=== PATIENT | male | born 1965 | race Caucasian/White ===

== ENCOUNTER 2016-07-03 10:25 | Inpatient (IN) | payer SELFPAY ==
[~2016-07-03] VITALS: Ht 185.4 cm; Wt 107.0 kg
[2016-07-03] VITALS (8 sets, daily range): BP systolic 116–175; BP diastolic 51–109; PULSE 86–120; RESP 15–28; TEMP 99–101.6; O2SAT 98–100
[2016-07-03] MEDS ORDERED: SODIUM CHLOR 0.9% 1000 ML INJ 1,000 ML IV SCH ×2 (11:15→12:29)
--- NOTE | 2016-07-03 11:17 | PD ---
HPI Chief Complaint: GI Complaint Time Seen by Provider: 11:17 Travel History International Travel<30 days: No Contact w/Intl Traveler<30days: No Traveled to known affect area: No History of Present Illness HPI 51-year-old male presents to the emergency department for evaluation of diarrhea for 3 weeks. Patient states that he has had copious loose stools for the past 3 weeks with loss of appetite. States that over the past several days he has had weakness and fatigue. States that today he had an episode of lightheadedness when standing up quickly. States that he has noticed some mucus in his stool and has had some blood-tinged stool but reports he thinks he has a hemorrhoid. Denies any black or tarry stools, nausea, vomiting, abdominal pain, chest pain, shortness of breath, cough or cold symptoms. Denies any recent travel or sick contacts. States that several weeks ago before his symptoms started he recalls eating grapes at the [employer] before washing them and thinks that that may have been what started his symptoms. Prior abdominal surgeries include cholecystectomy and inguinal hernia repair. No other complaints. PFSH Past Medical History Hx Anticoagulant Therapy: No Cancer: No Cardiovascular Problems: No Chemotherapy: No Cerebrovascular Accident: No Diabetes: No Diminished Hearing: No Endocrine: No Gastrointestinal Disorders: Yes Genitourinary: No Hepatitis: No Hiatal Hernia: No Immune Disorder: No Inguinal Hernia: Yes Musculoskeletal: Yes Neurologic: No Psychiatric: No Respiratory: No Tetanus Vaccination: > 5 Years Influenza Vaccination: No Past Surgical History Abdominal Surgery: Yes (HERNIA) Body Medical Devices: NONE Cardiac Surgery: No Cholecystectomy: Yes (2004 REMOVED) Ear Surgery: No Endocrine Surgery: No Eye Surgery: No Genitourinary Surgery: No Oral Surgery: No Thoracic Surgery: No Social History Alcohol Use: Yes (OCCASIONAL) Tobacco Use: No Substance Use: No Allergies-Medications (Allergen,Severity, Reaction): Coded Allergies: Penicillin (Verified Allergy, Severe, Rash, 07/03/16) Ampicillin (Verified Allergy, Unknown, 07/03/16) WAS A CHILD --DOESNT KNOW Erythromycin (Verified Allergy, Unknown, 07/03/16) *MDRO Multi-Drug Resistant Organism (Unverified Adverse Reaction, Unknown , 07/03/16) MRSA Reported Meds & Prescriptions Reported Meds & Active Scripts Active No Active Prescriptions or Reported Medications Review of Systems Except as stated in HPI: all other systems reviewed are Neg Physical Exam Narrative GENERAL: Well-nourished and well-developed pleasant male patient in no acute distress who is nontoxic appearing. SKIN: Warm and dry. HEAD: Normocephalic and atraumatic. EYES: No injection, drainage, or hyphema noted. PERRLA. EOMI. ENT: No nasal drainage noted. Oropharynx is clear. NECK: Supple and the trachea is midline. CARDIOVASCULAR: Regular rate and rhythm. RESPIRATORY: Breath sounds are equal bilaterally with no accessory muscle use, wheezing, rhonchi, or crackles. GASTROINTESTINAL: Mild tenderness to palpation of left lower quadrant. No rebound tenderness or guarding. Negative Justin sign. Negative McBurney's point. Abdomen is soft and nondistended. MUSCULOSKELETAL: No obvious deformities, swelling, cyanosis, or ecchymosis is present throughout the upper and lower extremities. Patient has full range of motion without any signs of neurovascular compromise. NEUROLOGICAL: Awake, alert, and oriented. Normal speech and gait. Cranial nerves are grossly intact. Data Data Last Documented VS Vital Signs Date Time Temp Pulse Resp B/P Pulse Ox O2 Delivery O2 Flow Rate FiO2 07/03/16 14:00 95 15 123/51 100 Room Air 07/03/16 10:29 100.6 Orders Complete Blood Count With Diff (07/03/16 11:15) Comprehensive Metabolic Panel (07/03/16 11:15) Lipase (07/03/16 11:15) Lactic Acid (07/03/16 11:15) Prothrombin Time / Inr (Pt) (07/03/16 11:15) Act Partial Throm Time (Ptt) (07/03/16 11:15) Urinalysis - C+S If Indicated (07/03/16 11:15) Ct Abd/Pel W Iv Contrast(Rout) (07/03/16 11:15) Iv Access Insert/Monitor (07/03/16 11:15) Ecg Monitoring (07/03/16 11:15) Oximetry (07/03/16 11:15) Sodium Chlor 0.9% 1000 Ml Inj (Ns 1000 M (07/03/16 11:15) Sodium Chloride 0.9% Flush (Ns Flush) (07/03/16 11:15) Blood Culture (07/03/16 11:17) Acetaminophen (Tylenol) (07/03/16 11:30) Sodium Chlor 0.9% 1000 Ml Inj (Ns 1000 M (07/03/16 12:29) Iohexol 350 Inj (Omnipaque 350 Inj) (07/03/16 12:54) C Diff Toxin Pcr (07/03/16 13:23) Stool Afb Culture And Stain (07/03/16 13:23) Levofloxacin 500 Mg Premix Inj (Levaquin (07/03/16 13:30) Metronidazole 500 Mg Inj (Flagyl 500 Mg (07/03/16 13:30) Admit Order (Ed Use Only) (07/03/16 14:44) Labs Laboratory Tests Test 07/03/16 07/03/16 07/03/16 11:15 11:20 13:45 White Blood Count 4.9 TH/MM3 Red Blood Count 4.62 MIL/MM3 Hemoglobin 13.8 GM/DL Hematocrit 38.6 % Mean Corpuscular Volume 83.4 FL Mean Corpuscular Hemoglobin 29.8 PG Mean Corpuscular Hemoglobin 35.8 % Concent Red Cell Distribution Width 12.7 % Platelet Count 321 TH/MM3 Mean Platelet Volume 6.9 FL Neutrophils (%) (Auto) 95.0 % Lymphocytes (%) (Auto) 4.0 % Monocytes (%) (Auto) 0.7 % Eosinophils (%) (Auto) 0.2 % Basophils (%) (Auto) 0.1 % Neutrophils # (Auto) 4.7 TH/MM3 Lymphocytes # (Auto) 0.2 TH/MM3 Monocytes # (Auto) 0.0 TH/MM3 Eosinophils # (Auto) 0.0 TH/MM3 Basophils # (Auto) 0.0 TH/MM3 CBC Comment DIFF FINAL Differential Comment Prothrombin Time 12.2 SEC Prothromb Time International 1.1 RATIO Ratio Activated Partial 26.1 SEC Thromboplast Time Sodium Level 139 MEQ/L Potassium Level 3.6 MEQ/L Chloride Level 105 MEQ/L Carbon Dioxide Level 24.6 MEQ/L Anion Gap 9 MEQ/L Blood Urea Nitrogen 9 MG/DL Creatinine 1.24 MG/DL Estimat Glomerular Filtration 61 ML/MIN Rate Random Glucose 105 MG/DL Calcium Level 8.4 MG/DL Total Bilirubin 0.5 MG/DL Aspartate Amino Transf 23 U/L (AST/SGOT) Alanine Aminotransferase 29 U/L (ALT/SGPT) Alkaline Phosphatase 70 U/L Total Protein 6.7 GM/DL Albumin 3.0 GM/DL Lipase 57 U/L Lactic Acid Level 3.0 mmol/L Urine Color YELLOW Urine Turbidity CLEAR Urine pH 6.0 Urine Specific [place] 1.043 Urine Protein TRACE mg/dL Urine Glucose (UA) NEG mg/dL Urine Ketones TRACE mg/dL Urine Occult Blood TRACE Urine Nitrite NEG Urine Bilirubin NEG Urine Urobilinogen LESS THAN 2.0 MG/DL Urine Leukocyte Esterase NEG Urine RBC 1 /hpf Urine WBC LESS THAN 1 /hpf Urine Squamous Epithelial <1 /hpf Cells Urine Mucus FEW /lpf Microscopic Urinalysis Comment CULT NOT INDICATED MDM Medical Decision Making Medical Screen Exam Complete: Yes Emergency Medical Condition: Yes Differential Diagnosis Diverticulitis versus colitis versus dehydration versus electrolyte abnormality versus other Narrative Course 51-year-old male presents to the emergency department for evaluation of diarrhea and loss of appetite for the past 3 weeks. Patient has a fever of 100.6F and he is tachycardic with a heart rate of 120 beats per minute. He is slightly hypertensive with a blood pressure 175/109 initially. Patient admits to feeling quite anxious. He does have some left lower quadrant abdominal tenderness to palpation but no peritoneal signs. IV access is obtained, labs have been drawn and sent. Patient is placed on cardiac telemetry and pulse oximetry monitoring. Patient is administered IV fluids. CT scan of the abdomen and pelvis has been ordered and is pending. CBC is unremarkable. CMP is unremarkable. Lactic acid is elevated at 3.0. Coags are unremarkable. CT of the abdomen and pelvis with IV contrast shows abnormal appearance of the cecum and ascending colon with focal wall thickening seen within the descending colon and perinephric fat stranding seen adjacent to the cecum consistent with colitis. Also multiple well circumscribed low density lesions within the liver consistent with simple hepatic cysts. The patient has been given 3 L of IV fluids and his heart rate has come down to around 95 bpm. He is administered IV Levaquin and IV Flagyl. The patient will be admitted for colitis and sepsis for IV fluids and antibiotics. I discussed the case with my attending physician Dr. Neff who is aware of the patients history, physical examination findings, and treatment plan. Sepsis Criteria Sepsis Criteria (SIRS+source): Infect source susp/known Physician Communication Physician Communication I spoke with Dr. Soni [facility] who agrees to admit the patient to his service. Diagnosis Primary Impression: Sepsis Qualified Code: A41.9 - Sepsis, due to unspecified organism Additional Impression: Colitis Admitting Information Admitting Physician Requests: Admit Scripts No Active Prescriptions or Reported Meds Maame Mejia Jul 03, 2016 11:17
[2016-07-03] MEDS: SODIUM CHLORIDE 0.9% FLUSH 10 ML FLUSH IV FLUSH PRN ×2 (11:19→21:15)
[2016-07-03] MEDS ORDERED: ACETAMINOPHEN 500 MG CPLT PO ONE (11:30)
[2016-07-03 11:41] LABS: AUTOMATED NEUTROPHIL # 4.7 TH/MM3 (1.8-7.7); BASOPHIL % 0.1 % (0.0-2.0); EOSINOPHIL % 0.2 % (0.0-4.0); HEMATOCRIT 38.6 % (39.0-51.0); HEMO FLAGS DIFF FINAL; LYMPHOCYTE # 0.2 TH/MM3 (1.0-4.8); MEAN CELL VOLUME 83.4 FL (80.0-100.0); MEAN CORPUSCULAR HEMOGLOBIN 29.8 PG (27.0-34.0); MEAN CORPUSCULAR HGB CONC 35.8 % (32.0-36.0); MONO % 0.7 % (0.0-8.0); PLATELET COUNT 321 TH/MM3 (150-450); RED BLOOD COUNT 4.62 MIL/MM3 (4.50-5.90); RED CELL DISTRIBUTION WIDTH 12.7 % (11.6-17.2); WHITE BLOOD COUNT 4.9 TH/MM3 (4.0-11.0)
[2016-07-03 11:44] LABS: APTT (PATIENT) 26.1 SEC (24.3-30.1); INTERNATIONAL NORMALIZED RATIO 1.1 RATIO; PROTHROMBIN TIME - PATIENT 12.2 SEC (9.8-11.6)
[2016-07-03 11:57] LABS: ALT (GPT) 29 U/L (12-78); ANION GAP 9 MEQ/L (5-15); AST (GOT) 23 U/L (15-37); BICARBONATE 24.6 MEQ/L (21.0-32.0); BLOOD UREA NITROGEN 9 MG/DL (7-18); CHLORIDE 105 MEQ/L (98-107); GLOMERULAR FILTRATION RATE 61 ML/MIN (>89); POTASSIUM 3.6 MEQ/L (3.5-5.1); SODIUM (NA) 139 MEQ/L (136-145)
[2016-07-03 11:59] LABS: ALKALINE PHOSPHATASE 70 U/L (45-117); TOTAL BILIRUBIN ADULT 0.5 MG/DL (0.2-1.0)
[2016-07-03] MEDS ORDERED: IOHEXOL 350 MG/ML 10 ML VIAL (for RAD DIAG) IV ONE (12:54)
--- NOTE | 2016-07-03 13:10 | RADRPT ---
EXAM DATE/TIME: 07/03/2016 12:28 [facility] COMPARISON: No previous studies available for comparison. INDICATIONS : Generalized weakness. IV CONTRAST: 100 cc Omnipaque 350 (iohexol) IV ORAL CONTRAST: No oral contrast ingested. RADIATION DOSE: 10.24 CTDIvol (mGy) MEDICAL HISTORY : Hernia, inguinal. SURGICAL HISTORY : Cholecystectomy. ENCOUNTER: Initial ACUITY: 1 day PAIN SCALE: 0/10 LOCATION: Bilateral abdomen. TECHNIQUE: Volumetric scanning of the abdomen and pelvis was performed. Using automated exposure control and ad justment of the mA and/or kV according to patient size, radiation dose was kept as low as reasonably achievable to obtain optimal diagnostic quality images. FINDINGS: LOWER LUNGS: The visualized lower lungs are clear. LIVER: The liver demonstrates multiple well-circumscribed fluid attenuating lesions identified within the le ft lobe and to a lesser extent the right lobe consistent with hepatic cysts. There is a single ill-de fined indeterminate low-attenuation lesion identified within the inferior right hepatic lobe on serie s 2 image 30 and coronal series 601 image 80. This area measures approximately 1.3 cm in size. The pa tient is status post prior cholecystectomy. No evidence of biliary obstruction. SPLEEN: Normal size without lesion. PANCREAS: Within normal limits. KIDNEYS: Normal in size and shape. There is no concerning mass, stone or hydronephrosis. There is a single sm all cortical based low density lesion in following the upper pole of the right kidney likely represen ting a small cyst. ADRENAL GLANDS: Within normal limits. VASCULAR: There is no aortic aneurysm. BOWEL/MESENTERY: The stomach and small bowel are unremarkable. There is a segment of descending colon wall thickening measuring approximately 5 cm in length and more distal to this although the wall appears thin there i s suggestion of adjacent perimesenteric fat stranding. These findings are concerning for an area of c olitis. Correlation with the patient's white count. In the absence of leukocytosis consider further e valuation of this region with colonoscopy. The remainder of the colon is unremarkable. ABDOMINAL WALL: Within normal limits. RETROPERITONEUM: There is no lymphadenopathy. BLADDER: No wall thickening or mass. REPRODUCTIVE: Within normal limits. INGUINAL: There is no lymphadenopathy or hernia. MUSCULOSKELETAL: Within normal limits for patient age. CONCLUSION: 1. Abnormal appearance of the cecum and ascending colon with focal wall thickening seen within the de scending colon and perinephric fat stranding seen adjacent to the cecum. Recommend correlation with t he patient's white count and in the absence of elevated white count consider further evaluation of th is region with colonoscopy. 2. Multiple well-circumscribed low-density lesions within the liver consistent with simple hepatic cy sts. There is a single lesion identified within the most inferior portion of the right lobe of the li edmar which is less well-defined and is indeterminate on this exam. Differential diagnosis includes hem angioma, infection and less likely metastatic disease.. Sangeetha Gamboa MD on July 03, 2016 at 12:59 Board Certified Radiologist. This report was verified electronically.
[2016-07-03] MEDS ORDERED: LEVOFLOXACIN 500 MG PREMIX INJ 100 ML IV ONE (13:30)
[2016-07-03] MEDS ORDERED: metroNIDAZOLE 500 MG INJ 100 ML IV ONE (13:30)
[2016-07-03 14:36] LABS: BLOOD, URINE TRACE (NEG); COMMENT (UR) CULT NOT INDICATED; CULTURE IF INDICATED CULT NOT INDICATED; GLUCOSE,URINE NEG (NEG); KETONE, URINE TRACE mg/dL (NEG); MUCUS URINE FEW /lpf (OCC); NITRITE,URINE NEG (NEG); SQUAMOUS EPITHELIAL CELL URINE <1 /hpf (0-5); URINE COLOR YELLOW (YELLW/STRAW)
[2016-07-03] MEDS ORDERED: ONDANSETRON HCL 4 MG/2 ML VIAL IV PRN (16:00)
--- NOTE | 2016-07-03 16:08 | HHI.HP ---
[facility] No Primary Care Physician Admission Diagnosis Sepsis, Colitis Diagnoses: Chief Complaint: Diarrhea Travel History International Travel<30 Days: No Contact w/Intl Traveler <30 Da: No Traveled to Known Affected Are: No Sepsis Criteria SIRS Criteria (2 or more): Temp > 100.9 or < 96.8, Heart rate over 90 Sepsis Criteria (SIRS+source): Infect source susp/known Severe Sepsis (+one): Lactate >2 Criteria Outcome: Meets severe sepsis criteria History of Present Illness This is a 51-year-old male without significant past medical history who presents combining of 3 weeks of diarrhea associated with bloating and episodic abdominal pain. The patient states that he started having watery diarrhea, at times with mucus and in one episode with streaks of blood. He said that he was able to manage the diarrhea. The patient states that last week he started losing his appetite and eating less. This a.m. he woke up feeling lightheaded, dizzy and started having shaking chills. Patient states he also felt warm but did not take his temperature. The patient states he has been having multiple episodes of diarrhea. The patient denies any chest pain, short of breath, denies abdominal pain at this moment, denies weight loss, states he feels very weak. The patient was in emergency department and once given IV antibiotics and IV fluids after which the patient states that he feels better. The patient denies nausea vomiting. The patient states that one day prior to the start of the diarrhea, he went to the [employer] and some grapes which he ate despite the fact that final that there were not washed. Patient denies any recent travel, there are no family sick contacts. Review of Systems As per history of present illness, other systems reviewed by me and negative Past Family Social History Past Medical History Denies Past Surgical History Cholecystectomy, hernia repair. Reported Medications Reported Meds & Active Scripts Active No Active Prescriptions or Reported Medications Allergies: Coded Allergies: Penicillin (Verified Allergy, Severe, Rash, 07/03/16) Ampicillin (Verified Allergy, Unknown, 07/03/16) WAS A CHILD --DOESNT KNOW Erythromycin (Verified Allergy, Unknown, 07/03/16) *MDRO Multi-Drug Resistant Organism (Unverified Adverse Reaction, Unknown , 07/03/16) MRSA Active Ordered Medications Current Medications Medications (Trade) Dose Ordered Sig/Darius Route Start Time Stop Time Status Last Admin (NS Flush) 2 ml UNSCH PRN IV FLUSH 07/03/16 11:15 07/03/16 11:19 Family History Father had diabetes and of pancreatic cancer. Hypertension runs in his family Social History Denies smoking. Occasional alcohol. Denies any drug use. Physical Exam Vital Signs Vital Signs Date Time Temp Pulse Resp B/P Pulse Ox O2 Delivery O2 Flow Rate FiO2 07/03/16 14:00 95 15 123/51 100 Room Air 07/03/16 12:45 89 16 99 Room Air 07/03/16 12:00 103 18 98 Room Air 07/03/16 11:19 16 98 Room Air 07/03/16 11:00 100 16 128/66 100 Room Air 07/03/16 10:45 16 07/03/16 10:29 100.6 120 28 175/109 98 Room Air Physical Exam GENERAL: This is a well-nourished, well-developed patient, in no apparent distress. SKIN: No rashes, ecchymoses or lesions. Cool and dry. HEAD: Atraumatic. Normocephalic. No temporal or scalp tenderness. EYES: Pupils equal round and reactive. Extraocular motions intact. No scleral icterus. No injection or drainage. ENT: Nose without bleeding, purulent drainage or septal hematoma. Throat without erythema, tonsillar hypertrophy or exudate. Uvula midline. Airway patent. NECK: Trachea midline. No JVD or lymphadenopathy. Supple, nontender, no meningeal signs. CARDIOVASCULAR: Regular rate and rhythm without murmurs, gallops, or rubs. RESPIRATORY: Clear to auscultation. Breath sounds equal bilaterally. No wheezes , rales, or rhonchi. GASTROINTESTINAL: Abdomen soft, non-tender, nondistended. No hepato-splenomegaly , or palpable masses. No guarding. MUSCULOSKELETAL: Extremities without clubbing, cyanosis, or edema. No joint tenderness, effusion, or edema noted. No calf tenderness. Negative Homans sign bilaterally. NEUROLOGICAL: Awake and alert. Cranial nerves II through XII intact. Motor and sensory grossly within normal limits. Five out of 5 muscle strength in all muscle groups. Normal speech. Laboratory Laboratory Tests Test 07/03/16 07/03/16 07/03/16 11:15 11:20 13:45 White Blood Count 4.9 Red Blood Count 4.62 Hemoglobin 13.8 Hematocrit 38.6 Mean Corpuscular Volume 83.4 Mean Corpuscular Hemoglobin 29.8 Mean Corpuscular Hemoglobin 35.8 Concent Red Cell Distribution Width 12.7 Platelet Count 321 Mean Platelet Volume 6.9 Neutrophils (%) (Auto) 95.0 Lymphocytes (%) (Auto) 4.0 Monocytes (%) (Auto) 0.7 Eosinophils (%) (Auto) 0.2 Basophils (%) (Auto) 0.1 Neutrophils # (Auto) 4.7 Lymphocytes # (Auto) 0.2 Monocytes # (Auto) 0.0 Eosinophils # (Auto) 0.0 Basophils # (Auto) 0.0 CBC Comment DIFF FINAL Differential Comment Prothrombin Time 12.2 Prothromb Time International 1.1 Ratio Activated Partial 26.1 Thromboplast Time Sodium Level 139 Potassium Level 3.6 Chloride Level 105 Carbon Dioxide Level 24.6 Anion Gap 9 Blood Urea Nitrogen 9 Creatinine 1.24 Estimat Glomerular Filtration 61 Rate Random Glucose 105 Calcium Level 8.4 Total Bilirubin 0.5 Aspartate Amino Transf 23 (AST/SGOT) Alanine Aminotransferase 29 (ALT/SGPT) Alkaline Phosphatase 70 Total Protein 6.7 Albumin 3.0 Lipase 57 Lactic Acid Level 3.0 Urine Color YELLOW Urine Turbidity CLEAR Urine pH 6.0 Urine Specific [place] 1.043 Urine Protein TRACE Urine Glucose (UA) NEG Urine Ketones TRACE Urine Occult Blood TRACE Urine Nitrite NEG Urine Bilirubin NEG Urine Urobilinogen LESS THAN 2.0 Urine Leukocyte Esterase NEG Urine RBC 1 Urine WBC LESS THAN 1 Urine Squamous Epithelial <1 Cells Urine Mucus FEW Microscopic Urinalysis Comment CULT NOT INDICATED Date/Time Procedure Status Source Growth 07/03/16 11:20 Aerobic Blood Culture Received Blood Peripheral Pending 07/03/16 11:20 Anaerobic Blood Culture Received Blood Peripheral Pending Result Diagram: 07/03/16 1115 07/03/16 1115 Imaging Last Impressions Abdomen/Pelvis CT 07/03/16 1115 Signed Impressions: Service Date/Time: Sunday, July 03, 2016 12:28 - CONCLUSION: 1. Abnormal appearance of the cecum and ascending colon with focal wall thickening seen within the descending colon and perinephric fat stranding seen adjacent to the cecum. Recommend correlation with the patient's white count and in the absence of elevated white count consider further evaluation of this region with colonoscopy. 2. Multiple well-circumscribed low-density lesions within the liver consistent with simple hepatic cysts. There is a single lesion identified within the most inferior portion of the right lobe of the liver which is less well-defined and is indeterminate on this exam. Differential diagnosis includes hemangioma, infection and less likely metastatic disease.. Sangeetha Gamboa MD Reviewed by me. Septic Shock Reassessment Heart: Regular rate and rhythm Lungs: Clear Skin: Warm Peripheral Pulses: Bounding Right Radial Bounding Left Radial Bounding Right Dorsalis Pedis Bounding Left Dorsalis Pedis Capillary Refill: <2 seconds Assessment and Plan Problem List: (1) Sepsis ICD Code: A41.9 Status: Acute (2) Gastroenteritis ICD Code: K52.9 Status: Acute (3) Colitis ICD Code: K52.9 Status: Acute (4) Generalized weakness ICD Code: R53.1 Status: Acute Assessment and Plan The patient presents with symptoms of gastroenteritis and colitis as shown on CT abdomen and pelvis. Differential diagnosis includes inflammatory versus infectious Admit the patient to the medical floor. Patient meets severe sepsis criteria present admission with tachycardia and low- grade fever and lactate of 3. Continue IV fluids in the form of normal saline. Continue IV antibioticsIV Levaquin and IV Flagyl. Consult gastroenterology for possible colonoscopy once diarrhea resolved. We'll check stool leukocytes, 2 for C. difficile, enteric path testing of the stool, stool Giardia antigen Generalized weakness secondary to diarrhea and decreased oral intake secondary to poor appetite. Code Status Full code Discussed Condition With Patient, ED physician, RN. Physician Certification 2 Midnight Certification Type: Admission for Inpatient Services Order for Inpatient Services The services are ordered in accordance with Medicare regulations or non- Medicare payer requirements, as applicable. In the case of services not specified as inpatient-only, they are appropriately provided as inpatient services in accordance with the 2-midnight benchmark. Estimated LOS (days): 2 days is the estimated time the patient will need to remain in the hospital, assuming treatment plan goals are met and no additional complications. Post-Hospital Plan: Not yet determined Problem Qualifiers (1) Sepsis: Qualified Code: A41.9 - Sepsis, due to unspecified organism Raymond Arias MD Jul 03, 2016 16:08
[2016-07-03] MEDS: NS + KCL 20 MEQ INJ 1,000 ML IV SCH (16:19)
[2016-07-03] MEDS: ENOXAPARIN SODIUM 40 MG/0.4 ML SYRINGE SQ SCH (17:26)
[2016-07-03] MEDS: LACTOBACILLUS ACIDOPHILUS TAB PO SCH ×2 (17:26→21:14)
--- NOTE | 2016-07-03 17:28 | RADRPT ---
EXAM DATE/TIME: 07/03/2016 16:35 [facility] COMPARISON: No previous studies available for comparison. INDICATIONS : Diarrhea abdominal pain MEDICAL HISTORY : Hernia, inguinal SURGICAL HISTORY : Cholecystectomy. ENCOUNTER: Initial ACUITY: 1 day PAIN SCORE: 0/10 LOCATION: Bilateral abdomen FINDINGS: Supine and upright views of the abdomen were performed. The abdominal bowel gas pattern is nonspecif ic with some air-filled nondilated loops of small and large bowel.. No air fluid levels are seen. N o abnormal masses, calcifications, or organomegaly is seen. The visualized lower lungs are clear. N o evidence of free intraperitoneal gas. Surgical clips in the right upper quadrant. There is contrast in the collecting systems. The bony structures are grossly intact. CONCLUSION: Benign abdomen. Everett Rivera MD on July 03, 2016 at 17:25 Board Certified Radiologist. This report was verified electronically.
[2016-07-03] MEDS: ACETAMINOPHEN 325 MG TAB PO PRN (21:14)
[2016-07-04] VITALS: BP 124/65; PULSE 81; RESP 20; TEMP 99.5; O2SAT 99
[2016-07-04] MEDS: NS + KCL 20 MEQ INJ 1,000 ML IV SCH ×3 (00:49→15:28)
[2016-07-04 04:00] VITALS: TEMP 101.5
[2016-07-04] MEDS: LACTOBACILLUS ACIDOPHILUS TAB PO SCH ×3 (04:33→20:48)
[2016-07-04] MEDS: ACETAMINOPHEN 325 MG TAB PO PRN ×2 (04:33→20:49)
[2016-07-04 04:52] LABS: AUTOMATED NEUTROPHIL # 3.7 TH/MM3 (1.8-7.7); BASOPHIL % 0.2 % (0.0-2.0); EOSINOPHIL % 0.2 % (0.0-4.0); HEMATOCRIT 35.1 % (39.0-51.0); HEMO FLAGS DIFF FINAL; LYMPH % 14.3 % (9.0-44.0); LYMPHOCYTE # 0.7 TH/MM3 (1.0-4.8); MEAN CELL VOLUME 84.9 FL (80.0-100.0); MEAN CORPUSCULAR HGB CONC 34.2 % (32.0-36.0); MONO % 11.5 % (0.0-8.0); NEUT % 73.8 % (16.0-70.0); PLATELET COUNT 217 TH/MM3 (150-450); RED BLOOD COUNT 4.14 MIL/MM3 (4.50-5.90); RED CELL DISTRIBUTION WIDTH 12.9 % (11.6-17.2)
[2016-07-04 05:14] LABS: BICARBONATE 26.9 MEQ/L (21.0-32.0); POTASSIUM 3.8 MEQ/L (3.5-5.1)
[2016-07-04 07:54] LABS: C. DIFF TOXIN PCR POSITIVE (NEGATIVE)
[2016-07-04 08:00] VITALS: BP 118/58; PULSE 70; RESP 18; TEMP 97.3; O2SAT 98
[2016-07-04 08:01] LABS: C. DIFF EPI 027 PRESUMPTIVE POSITIVE (NEGATIVE)
[2016-07-04] MEDS ORDERED: metroNIDAZOLE 500 MG INJ 100 ML IV SCH (08:45)
[2016-07-04] MEDS: VANCOMYCIN 500 MG VIAL (FOR ORAL USE ONLY) PO SCH ×4 (09:50→20:48)
[2016-07-04] MEDS: metroNIDAZOLE 500 MG INJ 100 ML IV SCH ×2 (09:51→17:12)
[2016-07-04 12:00] VITALS: BP 122/65; PULSE 74; RESP 16; TEMP 99.5; O2SAT 97
[2016-07-04] MEDS ORDERED: LEVOFLOXACIN 750 MG PREMIX INJ 150 ML IV SCH (14:00)
--- NOTE | 2016-07-04 15:17 | HHI.PR ---
Subjective Remarks Diarrhea much improved denies abdominal pain denies chills had a fever with a Tmax 101.6 last night and this morning. C. difficile positive Objective Vitals Vital Signs Date Time Temp Pulse Resp B/P Pulse Ox O2 Delivery O2 Flow Rate FiO2 07/04/16 12:00 99.5 74 16 122/65 97 07/04/16 08:00 97.3 70 18 118/58 98 07/04/16 04:00 101.5 07/04/16 00:00 99.5 81 20 124/65 99 07/03/16 20:00 101.6 88 20 135/64 100 07/03/16 16:00 99.0 86 16 116/59 98 Room Air I/O 07/03/16 07/03/16 07/03/16 07/04/16 07/04/16 07/04/16 07:00 15:00 23:00 07:00 15:00 23:00 Intake Total 740 ml 1897 ml 1200 ml Output Total 300 ml Balance 740 ml 1597 ml 1200 ml Intake Oral 240 ml 960 ml 1200 ml IV Total 500 ml 937 ml Output Urine Total 300 ml # Voids 3 5 # Bowel Movements 6 5 5 Result Diagram: 07/04/16 0358 07/04/16 0358 Imaging Last Impressions Abdomen/Pelvis CT 07/03/16 1115 Signed Impressions: Service Date/Time: Sunday, July 03, 2016 12:28 - CONCLUSION: 1. Abnormal appearance of the cecum and ascending colon with focal wall thickening seen within the descending colon and perinephric fat stranding seen adjacent to the cecum. Recommend correlation with the patient's white count and in the absence of elevated white count consider further evaluation of this region with colonoscopy. 2. Multiple well-circumscribed low-density lesions within the liver consistent with simple hepatic cysts. There is a single lesion identified within the most inferior portion of the right lobe of the liver which is less well-defined and is indeterminate on this exam. Differential diagnosis includes hemangioma, infection and less likely metastatic disease.. Sangeetha Gamboa MD Abdomen X-Ray 07/03/16 0000 Signed Impressions: Service Date/Time: Sunday, July 03, 2016 16:35 - CONCLUSION: Benign abdomen. Everett Rivera MD Objective Remarks GENERAL: This is a well-nourished, well-developed patient, in no apparent distress. SKIN: No rashes, ecchymoses or lesions. Cool and dry. HEAD: Atraumatic. Normocephalic. No temporal or scalp tenderness. EYES: Pupils equal round and reactive. Extraocular motions intact. No scleral icterus. No injection or drainage. ENT: Nose without bleeding, purulent drainage or septal hematoma. Throat without erythema, tonsillar hypertrophy or exudate. Uvula midline. Airway patent. NECK: Trachea midline. No JVD or lymphadenopathy. Supple, nontender, no meningeal signs. CARDIOVASCULAR: Regular rate and rhythm without murmurs, gallops, or rubs. RESPIRATORY: Clear to auscultation. Breath sounds equal bilaterally. No wheezes , rales, or rhonchi. GASTROINTESTINAL: Abdomen soft, non-tender, nondistended. No hepato-splenomegaly , or palpable masses. No guarding. Bowel sounds hyperactive. MUSCULOSKELETAL: Extremities without clubbing, cyanosis, or edema. No joint tenderness, effusion, or edema noted. No calf tenderness. Negative Homans sign bilaterally. NEUROLOGICAL: Awake and alert. Cranial nerves II through XII intact. Motor and sensory grossly within normal limits. Five out of 5 muscle strength in all muscle groups. Normal speech. Medications and IVs Current Medications Medications (Trade) Dose Ordered Sig/Darius Route Start Time Stop Time Status Last Admin Sodium Chloride 2 ml 2 ml UNSCH PRN IV FLUSH 07/03/16 11:15 07/03/16 21:15 (NS + KCl 20 Meq Inj) 1,000 ml @ 125 mls/hr Q8H IV 07/03/16 15:56 07/04/16 08:29 (Lactinex) 1 tab Q8HR PO 07/03/16 16:00 07/04/16 13:47 (Zofran Inj) 4 mg Q6H PRN IV 07/03/16 16:00 (Lovenox Inj) 40 mg Q24H SQ 07/03/16 17:00 07/03/16 17:26 (Tylenol) 650 mg Q4H PRN PO 07/03/16 21:00 07/04/16 04:33 Vancomycin HCl 500 mg 500 mg QID PO 07/04/16 09:00 07/04/16 12:29 (Flagyl 500 Mg Inj) 100 ml @ 100 mls/hr Q8H IV 07/04/16 10:00 07/04/16 09:51 Urinary Catheter: No Vascular Central Line Catheter: No A/P Problem List: (1) Sepsis ICD Code: A41.9 Status: Acute Plan: Due to C. difficile colitis with diarrhea. The patient was admitted to the medical floor for suspected gastroenteritis, started on empiric IV Levaquin and Flagyl. The patient is positive for C. difficile 027. I will discontinue Levaquin and start the patient on oral vancomycin, continue IV Flagyl. (2) C. difficile colitis ICD Code: A04.7 Status: Acute Plan: As described above CT scan. Continue oral vancomycin and IV Flagyl. (3) C. difficile diarrhea ICD Code: A04.7 Status: Acute Plan: Secondary to C. difficile infection. Diarrhea seems to be improving. Continue IV fluids. (4) Generalized weakness ICD Code: R53.1 Status: Acute Plan: Physical therapy evaluation. Assessment and Plan DVT prophylaxis: SCDs,Lovenox Discharge Planning Continue to monitor in the medical floor. Pending improvement. Problem Qualifiers (1) Sepsis: Qualified Code: A41.9 - Sepsis, due to unspecified organism Raymond Arias MD Jul 04, 2016 15:17
[2016-07-04 16:00] VITALS: BP 114/64; PULSE 86; RESP 20; TEMP 98.1; O2SAT 99
[2016-07-04] MEDS: ENOXAPARIN SODIUM 40 MG/0.4 ML SYRINGE SQ SCH (17:10)
[2016-07-04 20:00] VITALS: BP 137/69; PULSE 87; RESP 20; TEMP 100.1; O2SAT 98
[2016-07-05] VITALS: BP_SYST 126; BP_SYST 141; BP_DIAS 64; BP_DIAS 72; PULSE 76; PULSE 88; RESP 20; TEMP 98.2; TEMP 99.2; O2SAT 96; O2SAT 99
[2016-07-05] MEDS: metroNIDAZOLE 500 MG INJ 100 ML IV SCH ×3 (03:09→17:17)
[2016-07-05] MEDS: NS + KCL 20 MEQ INJ 1,000 ML IV SCH ×2 (03:09→08:35)
[2016-07-05] MEDS: LACTOBACILLUS ACIDOPHILUS TAB PO SCH ×3 (05:15→22:39)
[2016-07-05] MEDS: ACETAMINOPHEN 325 MG TAB PO PRN (05:21)
[2016-07-05 08:00] VITALS: BP 152/81; PULSE 84; RESP 20; TEMP 98; O2SAT 96
[2016-07-05] MEDS: VANCOMYCIN 500 MG VIAL (FOR ORAL USE ONLY) PO SCH ×4 (08:34→22:39)
[2016-07-05 12:00] VITALS: BP 131/69; PULSE 74; RESP 20; TEMP 98; O2SAT 96
--- NOTE | 2016-07-05 12:37 | HHI.PR ---
Subjective Remarks Had a low grade fever with a T max of 100.1 states diarrhea is slowing down and stool starting to form denies abdominal pain, nausea or vomiting denies cp/sob denies chills. Objective Vitals Vital Signs Date Time Temp Pulse Resp B/P Pulse Ox O2 Delivery O2 Flow Rate FiO2 07/05/16 12:00 98.0 74 20 131/69 96 07/05/16 08:00 98.0 84 20 152/81 96 07/05/16 00:00 99.2 88 20 141/72 96 07/04/16 20:00 100.1 87 20 137/69 98 07/04/16 16:00 98.1 86 20 114/64 99 I/O 07/04/16 07/04/16 07/04/16 07/05/16 07/05/16 07/05/16 07:00 15:00 23:00 07:00 15:00 23:00 Intake Total 1897 ml 2296 ml 540 ml 2185 ml Output Total 300 ml 700 ml 600 ml Balance 1597 ml 2296 ml -160 ml 1585 ml Intake Oral 960 ml 1200 ml 540 ml 480 ml IV Total 937 ml 1096 ml 1705 ml Output Urine Total 300 ml 700 ml 600 ml # Voids 5 # Bowel Movements 5 5 0 0 Result Diagram: 07/04/16 0358 07/04/16 0358 Imaging Last Impressions Abdomen/Pelvis CT 07/03/16 1115 Signed Impressions: Service Date/Time: Sunday, July 03, 2016 12:28 - CONCLUSION: 1. Abnormal appearance of the cecum and ascending colon with focal wall thickening seen within the descending colon and perinephric fat stranding seen adjacent to the cecum. Recommend correlation with the patient's white count and in the absence of elevated white count consider further evaluation of this region with colonoscopy. 2. Multiple well-circumscribed low-density lesions within the liver consistent with simple hepatic cysts. There is a single lesion identified within the most inferior portion of the right lobe of the liver which is less well-defined and is indeterminate on this exam. Differential diagnosis includes hemangioma, infection and less likely metastatic disease.. Sangeteha Gamboa MD Abdomen X-Ray 07/03/16 0000 Signed Impressions: Service Date/Time: Sunday, July 03, 2016 16:35 - CONCLUSION: Benign abdomen. Everett Rivera MD Objective Remarks GENERAL: This is a well-nourished, well-developed patient, in no apparent distress. SKIN: No rashes, ecchymoses or lesions. Cool and dry. HEAD: Atraumatic. Normocephalic. No temporal or scalp tenderness. EYES: Pupils equal round and reactive. Extraocular motions intact. No scleral icterus. No injection or drainage. ENT: Nose without bleeding, purulent drainage or septal hematoma. Throat without erythema, tonsillar hypertrophy or exudate. Uvula midline. Airway patent. NECK: Trachea midline. No JVD or lymphadenopathy. Supple, nontender, no meningeal signs. CARDIOVASCULAR: Regular rate and rhythm without murmurs, gallops, or rubs. RESPIRATORY: Clear to auscultation. Breath sounds equal bilaterally. No wheezes , rales, or rhonchi. GASTROINTESTINAL: Abdomen soft, non-tender, nondistended. No hepato-splenomegaly , or palpable masses. No guarding. Bowel sounds hyperactive. MUSCULOSKELETAL: Extremities without clubbing, cyanosis, or edema. No joint tenderness, effusion, or edema noted. No calf tenderness. Negative Homans sign bilaterally. NEUROLOGICAL: Awake and alert. Cranial nerves II through XII intact. Motor and sensory grossly within normal limits. Five out of 5 muscle strength in all muscle groups. Normal speech. Procedures none Medications and IVs Current Medications Medications (Trade) Dose Ordered Sig/Darius Route Start Time Stop Time Status Last Admin Sodium Chloride 2 ml 2 ml UNSCH PRN IV FLUSH 07/03/16 11:15 07/03/16 21:15 (NS + KCl 20 Meq Inj) 1,000 ml @ 125 mls/hr Q8H IV 07/03/16 15:56 07/05/16 08:35 (Lactinex) 1 tab Q8HR PO 07/03/16 16:00 07/05/16 05:15 (Zofran Inj) 4 mg Q6H PRN IV 07/03/16 16:00 (Lovenox Inj) 40 mg Q24H SQ 07/03/16 17:00 07/04/16 17:10 (Tylenol) 650 mg Q4H PRN PO 07/03/16 21:00 07/05/16 05:21 Vancomycin HCl 500 mg 500 mg QID PO 07/04/16 09:00 07/05/16 08:34 (Flagyl 500 Mg Inj) 100 ml @ 100 mls/hr Q8H IV 07/04/16 10:00 07/05/16 08:34 Urinary Catheter: No Vascular Central Line Catheter: No A/P Problem List: (1) Sepsis ICD Code: A41.9 Status: Acute Plan: Due to C. difficile colitis with diarrhea. The patient was admitted to the medical floor for suspected gastroenteritis, started on empiric IV Levaquin and Flagyl. The patient is positive for C. difficile 027. Continue oral vancomycin and IV flagyl. sepsis improving - had low grade fever last night (2) C. difficile colitis ICD Code: A04.7 Status: Acute Plan: CT scan of the abdomen/pelvis as described above. Continue oral vancomycin and IV Flagyl. (3) C. difficile diarrhea ICD Code: A04.7 Status: Acute Plan: Secondary to C. difficile infection. Diarrhea seems to be improving. DC IV fluids. (4) Generalized weakness ICD Code: R53.1 Status: Acute Plan: Physical therapy evaluation. Assessment and Plan DVT prophylaxis: SCDs,Lovenox Discharge Planning Possible Dc in am, pending improvement of diarrhea and no fevers x 24 hrs. Problem Qualifiers (1) Sepsis: Qualified Code: A41.9 - Sepsis, due to unspecified organism Raymond Arias MD Jul 05, 2016 12:37
[2016-07-05] MEDS: SODIUM CHLORIDE 0.9% FLUSH 10 ML FLUSH IV FLUSH PRN (12:40)
[2016-07-05 16:00] VITALS: BP 136/65; PULSE 67; RESP 20; TEMP 98.3; O2SAT 98
[2016-07-05] MEDS: ENOXAPARIN SODIUM 40 MG/0.4 ML SYRINGE SQ SCH (17:16)
--- NOTE | 2016-07-05 17:20 | HHI.GIFU ---
Subjective Remarks Resting in bed. No distress. 3 bowel movements today, semiformed, no blood. States he was on abx for an infected tooth about 2 months ago. 1st episode. Objective Vitals I&O Vital Signs Date Time Temp Pulse Resp B/P Pulse Ox O2 Delivery O2 Flow Rate FiO2 07/05/16 16:00 98.3 67 20 136/65 98 07/05/16 12:00 98.0 74 20 131/69 96 07/05/16 08:00 98.0 84 20 152/81 96 07/05/16 00:00 99.2 88 20 141/72 96 07/04/16 20:00 100.1 87 20 137/69 98 I/O 07/04/16 07/04/16 07/04/16 07/05/16 07/05/16 07/05/16 07:00 15:00 23:00 07:00 15:00 23:00 Intake Total 1897 ml 2296 ml 540 ml 2185 ml 1105 ml Output Total 300 ml 700 ml 600 ml Balance 1597 ml 2296 ml -160 ml 1585 ml 1105 ml Intake Oral 960 ml 1200 ml 540 ml 480 ml 480 ml IV Total 937 ml 1096 ml 1705 ml 625 ml Output Urine Total 300 ml 700 ml 600 ml # Voids 5 4 2 # Bowel Movements 5 5 0 0 0 2 Laboratory Date/Time Procedure Status Source Growth 07/03/16 16:30 Rotavirus Antigen - Final Complete Stool Stool NEGATIVE - ROTAVIRUS ANTIGEN IS ABSEN... 07/03/16 16:30 Cryptosporidium Exam Resulted Stool Stool Pending 07/03/16 16:30 Stool Pus (NORAH) - Final Resulted Stool Stool NO WBC'S SEEN 07/03/16 16:30 Giardia Antigen (NORAH) Resulted Stool Stool Pending 07/03/16 16:30 - Final Complete Stool Stool NO ENTERIC PATHOGENS DETECTED BY PCR... 07/03/16 16:30 Cancelled Stool Stool 07/03/16 11:20 Aerobic Blood Culture - Preliminary Resulted Blood Peripheral NO GROWTH IN 2 DAYS 07/03/16 11:20 Anaerobic Blood Culture - Preliminary Resulted Blood Peripheral NO GROWTH IN 2 DAYS Imaging Last Impressions Abdomen/Pelvis CT 07/03/16 1115 Signed Impressions: Service Date/Time: Sunday, July 03, 2016 12:28 - CONCLUSION: 1. Abnormal appearance of the cecum and ascending colon with focal wall thickening seen within the descending colon and perinephric fat stranding seen adjacent to the cecum. Recommend correlation with the patient's white count and in the absence of elevated white count consider further evaluation of this region with colonoscopy. 2. Multiple well-circumscribed low-density lesions within the liver consistent with simple hepatic cysts. There is a single lesion identified within the most inferior portion of the right lobe of the liver which is less well-defined and is indeterminate on this exam. Differential diagnosis includes hemangioma, infection and less likely metastatic disease.. Sangeetha Gamboa MD Abdomen X-Ray 07/03/16 0000 Signed Impressions: Service Date/Time: Sunday, July 03, 2016 16:35 - CONCLUSION: Benign abdomen. Everett Rivera MD Physical Exam HEENT: Normocephalic; atraumatic; no jaundice. CHEST: Resp. even/unlabored. CARDIAC: Regular rate and rhythm with no murmur gallop or rubs. ABDOMEN: Soft, nondistended, nontender; no hepatosplenomegaly; bowel sounds are present in all four quadrants. EXTREMITIES: No clubbing, cyanosis, or edema. SKIN: Normal; no rash; no jaundice. [employer]: No focal deficits; alert and oriented times three. Assessment and Plan Plan ASSESSMENT: - CDiff Colitis, 1st episode. 027 (+). Recent hx of abx use. Abdomen/Pelvis CT (07/03/16)-----> 1. Abnormal appearance of the cecum and ascending colon with focal wall thickening seen within the descending colon and perinephric fat stranding seen adjacent to the cecum. Recommend correlation with the patient's white count and in the absence of elevated white count consider further evaluation of this region with colonoscopy. 2. Multiple well-circumscribed low-density lesions within the liver consistent with simple hepatic cysts. There is a single lesion identified within the most inferior portion of the right lobe of the liver which is less well-defined and is indeterminate on this exam. Differential diagnosis includes hemangioma, infection and less likely metastatic disease. Responding well to tx. 3 semi-formed stools today. Flagyl. - Liver lesions. CT as above. LFTs normal. ? MRI vs. fu imaging. PLAN: - [facility] - Cont. Flagyl - Monitor labs - Consider MRI vs. FU imaging for multiple liver lesions - Supportive care - Further recommendations to follow based on results of above - PT seen and examined by Dr. Rees and myself and this note is written on his behalf Zaida Vilchis Jul 05, 2016 17:20
[2016-07-05 20:00] VITALS: BP 132/68; PULSE 80; RESP 20; TEMP 98.9; O2SAT 98
--- NOTE | 2016-07-05 20:07 | MB ---
cc: OTIS BARRAZA M.D. DATE OF CONSULTATION 07/04/[address] Soni REASON FOR REFERRAL Abdominal pain, diarrhea. HISTORY OF THE PRESENT ILLNESS Thank you for the consultation. A pleasant 51-year-old gentleman who has significant diarrhea for the last 3 weeks with bloating and abdominal pain. The patient stated that he is not able to eat. He lost his appetite and he had diarrhea almost all the time with many bowel movements. He had no GI bleed with it except one time when he had streaks of blood. The patient was taking [id number] medication but his pain was worse, his diarrhea was not improving and he had low grade temperature. He denied any GI symptom in the past. He never had a colonoscopy. He denied any nausea or vomiting. No hematemesis. PAST MEDICAL HISTORY Negative. PAST SURGICAL HISTORY 1. Hernia repair. 2. Cholecystectomy. ALLERGIES PENICILLIN, AMPICILLIN, ERYTHROMYCIN. SOCIAL HISTORY No tobacco or drugs. Occasional alcohol. FAMILY HISTORY Significant for pancreatic cancer and hypertension. REVIEW OF SYSTEMS All 12-point negative except HPI. PHYSICAL EXAMINATION GENERAL: Alert, oriented no acute distress. VITAL SIGNS: Stable. HEENT: Pupils round, reactive to light. NECK: Supple. CHEST: Clear to auscultation and percussion. CARDIOVASCULAR: Regular rate and rhythm. ABDOMEN: Soft, mild diffuse tenderness with positive bowel sounds. EXTREMITIES: No edema, clubbing or cyanosis. NEUROLOGIC: Intact. PSYCHOLOGIC: Appropriate. LABORATORY DATA White count 4.9, hemoglobin 13.8, platelet 321. INR 1.1. Liver function tests normal. Lipase 57, BUN 15, creatinine 1.24. C diff was positive. IMAGING CT scan showed abnormal appearance of the cecum and ascending colon with focal wall thickening seen within the descending colon. Consideration should be made for colonoscopy. Mild well circumscribed density, lesion of the liver consistent with hepatic cyst. ASSESSMENT/PLAN A 51-year-old gentleman who has new onset of diarrhea and low grade temperature, abdominal discomfort, abnormal CT scan, positive C diff. We will start him on treatment for C diff with antibiotics. The patient will need a colonoscopy in 4-5 weeks to evaluate the ascending colon and make sure there is no malignancy, but we will wait until his C diff is well-controlled. I discussed the plan with the patient. He is agreeable. MD MACEY Cruz /5:33 PM /7:49 PM
[2016-07-06] VITALS: BP 141/72; PULSE 84; RESP 20; TEMP 98; O2SAT 96
[2016-07-06] MEDS: SODIUM CHLORIDE 0.9% FLUSH 10 ML FLUSH IV FLUSH PRN (01:42)
[2016-07-06] MEDS: metroNIDAZOLE 500 MG INJ 100 ML IV SCH ×2 (01:42→09:13)
[2016-07-06] MEDS: LACTOBACILLUS ACIDOPHILUS TAB PO SCH ×2 (06:14→12:20)
[2016-07-06 08:00] VITALS: BP 148/72; PULSE 83; RESP 20; TEMP 97.8; O2SAT 98
[2016-07-06] MEDS: VANCOMYCIN 500 MG VIAL (FOR ORAL USE ONLY) PO SCH ×2 (09:13→12:20)
[2016-07-06 11:15] LABS: AUTOMATED NEUTROPHIL # 2.1 TH/MM3 (1.8-7.7); BASOPHIL % 0.5 % (0.0-2.0); EOSINOPHIL # 0.1 TH/MM3 (0-0.4); EOSINOPHIL % 1.6 % (0.0-4.0); HEMATOCRIT 38.3 % (39.0-51.0); HEMO FLAGS DIFF FINAL; LYMPH % 29.5 % (9.0-44.0); LYMPHOCYTE # 1.1 TH/MM3 (1.0-4.8); MEAN CELL VOLUME 82.6 FL (80.0-100.0); MEAN CORPUSCULAR HEMOGLOBIN 29.1 PG (27.0-34.0); MEAN CORPUSCULAR HGB CONC 35.2 % (32.0-36.0); MONO % 11.8 % (0.0-8.0); NEUT % 56.6 % (16.0-70.0); PLATELET COUNT 281 TH/MM3 (150-450); RED BLOOD COUNT 4.63 MIL/MM3 (4.50-5.90); RED CELL DISTRIBUTION WIDTH 12.6 % (11.6-17.2); WHITE BLOOD COUNT 3.7 TH/MM3 (4.0-11.0)
[2016-07-06] MEDS ORDERED: VANC500I3 PO (11:46)
[2016-07-06] MEDS ORDERED: LACT PO (11:46)
--- NOTE | 2016-07-06 11:47 | HHI.DCPOC ---
Discharge Care Plan Diagnosis: (1) Generalized weakness (2) Colitis (3) Sepsis (4) C. difficile diarrhea (5) C. difficile colitis Goals to Promote Your Health * To prevent worsening of your condition and complications * To maintain your health at the optimal level Directions to Meet Your Goals Take your medications as prescribed Follow your dietary instruction Follow activity as directed Keep your appointments as scheduled Take your immunizations and boosters as scheduled If your symptoms worsen call your PCP, if no PCP go to Urgent Care Center or Emergency Room Smoking is Dangerous to Your Health. Avoid second hand smoke Call the 24-hour hour crisis hotline for domestic abuse at Raymond Arias MD Jul 06, 2016 11:47
--- NOTE | 2016-07-06 11:53 | HHI.DS ---
Discharge Summary Admission Date Jul 03, 2016 at 14:46 Discharge Date: Jul 06, 2016 Admitting Diagnosis Sepsis, Colitis (1) Sepsis ICD Code: A41.9 Diagnosis: Principal (2) C. difficile colitis ICD Code: A04.7 Diagnosis: Principal (3) C. difficile diarrhea ICD Code: A04.7 Diagnosis: Principal (4) Generalized weakness ICD Code: R53.1 Diagnosis: Principal Procedures none Brief History - From Admission This is a 51-year-old male without significant past medical history who presents combining of 3 weeks of diarrhea associated with bloating and episodic abdominal pain. The patient states that he started having watery diarrhea, at times with mucus and in one episode with streaks of blood. He said that he was able to manage the diarrhea. The patient states that last week he started losing his appetite and eating less. This a.m. he woke up feeling lightheaded, dizzy and started having shaking chills. Patient states he also felt warm but did not take his temperature. The patient states he has been having multiple episodes of diarrhea. The patient denies any chest pain, short of breath, denies abdominal pain at this moment, denies weight loss, states he feels very weak. The patient was in emergency department and once given IV antibiotics and IV fluids after which the patient states that he feels better. The patient denies nausea vomiting. The patient states that one day prior to the start of the diarrhea, he went to the [employer] and some grapes which he ate despite the fact that final that there were not washed. Patient denies any recent travel, there are no family sick contacts. CBC/BMP: 07/06/16 1057 07/04/16 0358 Significant Findings Laboratory Tests Test 07/03/16 07/03/16 07/04/16 07/06/16 13:45 16:30 03:58 10:57 Urine Specific Holcomb 1.043 (1.002-1.035) Urine Ketones TRACE mg/dL (NEG) Urine Occult Blood TRACE (NEG) Urine Mucus FEW /lpf (OCC) Stool C. difficile Toxin (PCR) POSITIVE (NEGATIVE) Stl C. difficile Toxin PRESUMPTIVE Epiderm 027 POSITIVE (NEGATIVE) Red Blood Count 4.14 MIL/MM3 (4.50-5.90) Hemoglobin 12.0 GM/DL (13.0-17.0) Hematocrit 35.1 % 38.3 % (39.0-51.0) (39.0-51.0) Mean Platelet Volume 6.9 FL 6.8 FL (7.0-11.0) (7.0-11.0) Neutrophils (%) (Auto) 73.8 % (16.0-70.0) Monocytes (%) (Auto) 11.5 % 11.8 % (0.0-8.0) (0.0-8.0) Lymphocytes # (Auto) 0.7 TH/MM3 (1.0-4.8) Estimat Glomerular Filtration 77 ML/MIN (>89) Rate Calcium Level 7.5 MG/DL (8.5-10.1) White Blood Count 3.7 TH/MM3 (4.0-11.0) Imaging Last Impressions Abdomen/Pelvis CT 07/03/16 1115 Signed Impressions: Service Date/Time: Sunday, July 03, 2016 12:28 - CONCLUSION: 1. Abnormal appearance of the cecum and ascending colon with focal wall thickening seen within the descending colon and perinephric fat stranding seen adjacent to the cecum. Recommend correlation with the patient's white count and in the absence of elevated white count consider further evaluation of this region with colonoscopy. 2. Multiple well-circumscribed low-density lesions within the liver consistent with simple hepatic cysts. There is a single lesion identified within the most inferior portion of the right lobe of the liver which is less well-defined and is indeterminate on this exam. Differential diagnosis includes hemangioma, infection and less likely metastatic disease.. Sangeetha Gamboa MD Abdomen X-Ray 07/03/16 0000 Signed Impressions: Service Date/Time: Sunday, July 03, 2016 16:35 - CONCLUSION: Benign abdomen. Everett Rivera MD PE at Discharge GENERAL: This is a well-nourished, well-developed patient, in no apparent distress. SKIN: No rashes, ecchymoses or lesions. Cool and dry. HEAD: Atraumatic. Normocephalic. No temporal or scalp tenderness. EYES: Pupils equal round and reactive. Extraocular motions intact. No scleral icterus. No injection or drainage. ENT: Nose without bleeding, purulent drainage or septal hematoma. Throat without erythema, tonsillar hypertrophy or exudate. Uvula midline. Airway patent. NECK: Trachea midline. No JVD or lymphadenopathy. Supple, nontender, no meningeal signs. CARDIOVASCULAR: Regular rate and rhythm without murmurs, gallops, or rubs. RESPIRATORY: Clear to auscultation. Breath sounds equal bilaterally. No wheezes , rales, or rhonchi. GASTROINTESTINAL: Abdomen soft, non-tender, nondistended. No hepato-splenomegaly , or palpable masses. No guarding. Bowel sounds hyperactive. MUSCULOSKELETAL: Extremities without clubbing, cyanosis, or edema. No joint tenderness, effusion, or edema noted. No calf tenderness. Negative Homans sign bilaterally. NEUROLOGICAL: Awake and alert. Cranial nerves II through XII intact. Motor and sensory grossly within normal limits. Five out of 5 muscle strength in all muscle groups. Normal speech. Pt update on day of discharge Patient denies further diarrhea, denies abdominal pain nausea vomiting. Patient is tolerating diet. Denies fevers or chills. Hospital Course (1) Sepsis Due to C. difficile colitis with diarrhea. The patient was admitted to the medical floor for suspected gastroenteritis, started on empiric IV Levaquin and oral Vancomycin. The patient is positive for C. difficile 027. Sepsis resolved upon discharge GI consulted. The patient will need an outpatient colonoscopy to rule out malignancy and an outpatient MRI of the abdomen to better assess abnormal lesions in the liver which are likely hepatic cysts. MRI cannot be done as an inpatient as per patient requests since he has several piercings that need to be removed first before MRI. (2) C. difficile colitis CT scan of the abdomen/pelvis as described above. Continue oral vancomycin and IV Flagyl. Patient needs a colonoscopy (3) C. difficile diarrhea Plan: Secondary to C. difficile infection.Diarrhea resolved with IV Flagyl and oral Vancomycin. Dc home on PO Vancomycin x 14 days. (4) Generalized weakness Plan: PT (4) Generalized weakness Hepatic cysts observed on CT abdomen and pelvis. There is one lesion that could not be characterized. The patient will need an MRI. Offered to the patient to have it done while inpatient, however he states that he has over 16 piercings that would need to be removed prior to the procedure. He states he will have it as an outpatient. DVT prophylaxis: SCDs,Lovenox Pt Condition on Discharge: Stable Discharge Disposition: Discharge Home Discharge Time: > 30 minutes Discharge Instructions DIET: Follow Instructions for: As Tolerated, No Restrictions Activities you can perform: Regular-No Restrictions Activities to Avoid: Prolonged Standing, Strenuous Activity Follow up Referrals: Gastroenterology - 2 Weeks with Joao Rees MD New Medications: Lactobacillus Acidophilus (Acidophilus/l-Sporogenes) 1 Tab Tab 1 TAB PO Q8HR Infection #36 TAB Vancomycin Inj (Vancomycin Inj) 500 Mg Inj 500 MG PO QID Infection #48 INJECTION Raymond Arias MD Jul 06, 2016 11:53
[2016-07-06] MEDS ORDERED: VANC1SOL3 PO (11:59)
[2016-07-06 12:00] VITALS: BP 127/73; PULSE 86; RESP 18; TEMP 98.6; O2SAT 96
== END 2016-07-06 13:17 | disposition home or self-care (01) | DRG 872 ==
LOC: NEPC 10:25 → NEDA 14:46 → N07A 17:05
PROVIDERS: ADMIT Hospitalist; ATTEND Hospitalist
DX: A41.9 Sepsis, unspecified organism (principal); N17.9 Acute kidney failure, unspecified; A04.7 Enterocolitis due to Clostridium difficile; K76.89 Other specified diseases of liver; R65.20 Severe sepsis without septic shock; E86.0 Dehydration
CPT/HCPCS: 74020; 74177; 80048; 80053; 81001; 83605; 83690; 84443; 85025; 85610; 85730; 86703; 87015; 87040; 87116; 87205; 87206; 87328; 87329; 87425; 87493; 87506; 96361; 96365; 96368; J1650; J1956; J3480; J7030; Q9967